=== PATIENT | female | born 1990 | race American Indian/Alaskan Native ===

== ENCOUNTER 2016-04-24 08:37 | Emergency (ER) | payer MEDICAID ==
[2016-04-24 08:53] VITALS: BP 104/65
[2016-04-24 10:25] LABS: Basophils % (Auto) 0.6 % (0.0-1.8); Hematocrit 41.6 % (30.3-42.9); Hemoglobin 13.4 gm/dl (10.1-14.3); Mean Corpuscular HGB Conc 32 % (30-34); Mean Corpuscular Hemoglobin 28 pg (28-32); Mean Corpuscular Volume 85 fl (79-97); Platelet Count 257 K/mm3 (140-440); Red Blood Count 4.87 M/mm3 (3.65-5.03); Red Cell Distribution Width 13.4 % (13.2-15.2); White Blood Count 6.6 K/mm3 (4.5-11.0)
[2016-04-24 10:43] LABS: Alanine Aminotransferase 8 units/L (7-56); Albumin 3.9 g/dL (3.9-5); Albumin/Globulin Ratio 1.4 %; Alkaline Phosphatase 70 units/L (35-129); Anion Gap 13 mmol/L; Bilirubin,Total 0.4 mg/dL (0.1-1.2); Blood Urea Nitrogen 6 mg/dL (7-17); Carbon Dioxide 28 mmol/L (22-30); Chloride 105.7 mmol/L (98-107); Glucose 87 mg/dL (65-100); Lipase 32 units/L (13-60); Potassium 4.2 mmol/L (3.6-5.0); Sodium 142 mmol/L (137-145); Total Protein 6.6 g/dL (6.3-8.2)
[2016-04-24 11:31] LABS: Bilirubin,Urine NEG (Negative); Blood,Urine NEG (Negative); Ketones,Urine NEG (Negative); Leukocyte Esterase,Urine NEG (Negative); Mucus,Urine FEW /HPF; Nitrite,Urine NEG (Negative); Protein,Urine <15 mg/dL mg/dL (Negative); Urobilinogen,Urine < 2.0 mg/dL (<2.0)
--- NOTE | 2016-04-25 14:57 | ED Elopement Review ---
ED Pt Elopement review - Results review Lab results: Laboratory Tests 04/24/16 04/24/16 04/24/16 10:11 10:11 10:11 WBC 6.6 RBC 4.87 Hgb 13.4 Hct 41.6 MCV 85 MCH 28 MCHC 32 RDW 13.4 Plt Count 257 Lymph % (Auto) 28.9 [place] % (Auto) 5.8 Eos % (Auto) 4.0 Baso % (Auto) 0.6 Lymph # 1.9 [place] # 0.4 Eos # 0.3 Baso # 0.0 Seg Neutrophils % 60.7 Seg Neutrophils # 4.0 Sodium 142 Potassium 4.2 Chloride 105.7 Carbon Dioxide 28 Anion Gap 13 BUN 6 L Creatinine 0.5 L Estimated GFR > 60 BUN/Creatinine Ratio 12.00 Glucose 87 Calcium 9.0 Total Bilirubin 0.4 AST 10 ALT 8 Alkaline Phosphatase 70 Total Protein 6.6 Albumin 3.9 Albumin/Globulin Ratio 1.4 Lipase 32 HCG, Qual Negative Urine Color Urine Turbidity Urine pH Ur Specific [place] Urine Protein Urine Glucose (UA) Urine Ketones Urine Blood Urine Nitrite Urine Bilirubin Urine Urobilinogen Ur Leukocyte Esterase Urine WBC (Auto) Urine RBC (Auto) U Epithel Cells (Auto) Urine Mucus 04/24/16 Unknown WBC RBC Hgb Hct MCV MCH MCHC RDW Plt Count Lymph % (Auto) [place] % (Auto) Eos % (Auto) Baso % (Auto) Lymph # [place] # Eos # Baso # Seg Neutrophils % Seg Neutrophils # Sodium Potassium Chloride Carbon Dioxide Anion Gap BUN Creatinine Estimated GFR BUN/Creatinine Ratio Glucose Calcium Total Bilirubin AST ALT Alkaline Phosphatase Total Protein Albumin Albumin/Globulin Ratio Lipase HCG, Qual Urine Color Yellow Urine Turbidity Clear Urine pH 7.0 Ur Specific [place] 1.018 Urine Protein <15 mg/dl Urine Glucose (UA) Neg Urine Ketones Neg Urine Blood Neg Urine Nitrite Neg Urine Bilirubin Neg Urine Urobilinogen < 2.0 Ur Leukocyte Esterase Neg Urine WBC (Auto) 1.0 Urine RBC (Auto) 2.0 U Epithel Cells (Auto) 4.0 Urine Mucus Few - Call Back decision Pt Call Back Decision: No action required
== END 2016-04-24 19:30 | disposition left against medical advice (07) ==
LOC: ED 08:37
DX: R10.10 Upper abdominal pain, unspecified (principal); R11.0 Nausea; R19.7 Diarrhea, unspecified; Z53.21 Procedure and treatment not carried out due to patient leaving prior to being seen by health care provider
CPT/HCPCS: 36415; 80053; 81001; 83690; 84703; 85025

== ENCOUNTER 2018-05-15 10:14 | Outpatient (CLI) | payer OTHER ==
[2018-05-15] MEDS ORDERED: LACTATED RINGERS 1,000 ML ONE (11:35)
[2018-05-15] MEDS ORDERED: LACTATED RINGERS 500 ML IV ONE (12:08)
[2018-05-15] MEDS ORDERED: ZOFRAN IV ONE (12:09)
[2018-05-15 12:31] LABS: Hematocrit 33.9 % (30.3-42.9); Hemoglobin 11.3 gm/dl (10.1-14.3); Mean Corpuscular HGB Conc 33 % (30-34); Mean Corpuscular Volume 84 fl (79-97); Platelet Count 267 K/mm3 (140-440); Red Blood Count 4.05 M/mm3 (3.65-5.03); Red Cell Distribution Width 13.4 % (13.2-15.2)
[2018-05-15 12:42] VITALS: BP 116/59
[2018-05-15 12:46] LABS: Alanine Aminotransferase 6 units/L (7-56); Albumin 3.5 g/dL (3.9-5); BUN/Creatinine Ratio 10; Blood Urea Nitrogen 3 mg/dL (7-17); Calcium 8.5 mg/dL (8.4-10.2); Hemolysis Index 24
[2018-05-15] MEDS ORDERED: TYLENOL PO ONE (13:00)
== END 2018-05-15 13:29 | disposition home or self-care (01) ==
LOC: TRG 10:14
PROVIDERS: ATTEND Obstetrics & Gynecology
DX: O47.02 False labor before 37 completed weeks of gestation, second trimester (principal); Z91.040 Latex allergy status; Z91.010 Allergy to peanuts; Z3A.24 24 weeks gestation of pregnancy
CPT/HCPCS: 36415; 59025; 80053; 85027; 96360; J2405; J7120

== ENCOUNTER 2018-07-19 22:04 | Outpatient (CLI) | payer OTHER ==
[2018-07-20] MEDS ORDERED: LACTATED RINGERS 1,000 ML IV ONE (00:26)
[2018-07-20 01:10] LABS: Hematocrit 27.9 % (30.3-42.9); Hemoglobin 9.2 gm/dl (10.1-14.3); Mean Corpuscular HGB Conc 33 % (30-34); Mean Corpuscular Volume 78 fl (79-97); Platelet Count 292 K/mm3 (140-440); Red Blood Count 3.59 M/mm3 (3.65-5.03); Red Cell Distribution Width 15.7 % (13.2-15.2)
[2018-07-20 01:21] LABS: Bilirubin,Urine NEG (Negative); Blood,Urine NEG (Negative); Color,Urine Yellow (Yellow); Mucus,Urine FEW /HPF; Protein,Urine <15 mg/dL mg/dL (Negative)
[2018-07-20 01:54] LABS: Alanine Aminotransferase 5 units/L (7-56)
[2018-07-20 02:29] LABS: Uric Acid 2.7 mg/dL (3.5-7.6)
[2018-07-20] MEDS ORDERED: TYLENOL PO ONE (02:48)
[2018-07-20] MEDS: BRETHINE SUB-Q SCH ×2 (02:54→03:46)
[2018-07-20 03:45] VITALS: BP 115/55
== END 2018-07-20 04:30 | disposition home or self-care (01) ==
LOC: TRG 22:04
PROVIDERS: ATTEND Obstetrics & Gynecology
DX: O26.893 Other specified pregnancy related conditions, third trimester (principal); R10.2 Pelvic and perineal pain; R51 Headache; R42 Dizziness and giddiness; H53.8 Other visual disturbances; R11.0 Nausea; Z3A.34 34 weeks gestation of pregnancy
CPT/HCPCS: 36415; 59025; 81001; 82565; 83615; 84450; 84460; 84550; 85027; 96360; 96372; J3105; J7120

== ENCOUNTER 2018-08-01 20:26 | Outpatient (CLI) | payer OTHER ==
[2018-08-01] MEDS ORDERED: LACTATED RINGERS 500 ML IV ONE (20:51)
[2018-08-01 21:15] LABS: Bilirubin,Urine NEG (Negative); Blood,Urine NEG (Negative); Color,Urine Yellow (Yellow); Mucus,Urine FEW /HPF; Protein,Urine <15 mg/dL mg/dL (Negative); Urobilinogen,Urine < 2.0 mg/dL (<2.0)
[2018-08-02 00:01] VITALS: BP 119/56
[2018-08-02] MEDS ORDERED: TYLENOL PO STA (00:02)
== END 2018-08-02 00:20 | disposition home or self-care (01) ==
LOC: TRG 20:26
PROVIDERS: ATTEND Obstetrics & Gynecology
DX: O62.9 Abnormality of forces of labor, unspecified (principal); O26.893 Other specified pregnancy related conditions, third trimester; R11.0 Nausea; O99.513 Diseases of the respiratory system complicating pregnancy, third trimester; J45.909 Unspecified asthma, uncomplicated; Z3A.36 36 weeks gestation of pregnancy
CPT/HCPCS: 59025; 81001; J7120; 96360; 96361

== ENCOUNTER 2018-08-13 21:35 | Inpatient (IN) | payer OTHER ==
[2018-08-13] MEDS ORDERED: LACTATED RINGERS 1,000 ML IV SCH (23:45)
[2018-08-14] MEDS ORDERED: PEPCID IV ONE ×2 (01:39→01:49)
[2018-08-14] MEDS ORDERED: REGLAN ONE (01:39)
[2018-08-14] MEDS ORDERED: BICITRA ONE (01:39)
[2018-08-14] MEDS ORDERED: ANCEF/STERILE WATER 2 GM/20 ML 2 GM/20 ML SYRINGE IV ONE (01:39)
[2018-08-14] MEDS ORDERED: PITOCin/NS 20 UNIT/1000ML DRIP 20,000 MILLIUNITS/1,000 ML BAG IV ONE (01:40)
[2018-08-14] MEDS ORDERED: REGLAN IV ONE (01:49)
[2018-08-14] MEDS ORDERED: BICITRA PO ONE (01:49)
[2018-08-14] MEDS ORDERED: ANCEF/STERILE WATER 2 GM/20 ML IV NR (02:00)
[2018-08-14] MEDS ORDERED: PITOCin/NS 20 UNIT/1000ML DRIP 20 UNITS/1,000 ML BAG IV SCH ×2 (02:00→08:00)
[2018-08-14] MEDS ORDERED: LACTATED RINGERS 1,000 ML IV SCH (02:00)
--- NOTE | 2018-08-14 02:05 | History and Physical Report ---
History of Present Illness Date of examination: 08/14/18 Date of admission: 08/14/18 01:40 Chief complaint: painful contractions History of present illness: Pt is a 28 year old -[place] female LUBA 09/01/18 at 37w3d who presents with regular painful contractions q 3 minutes. She denies leakage of fluid or vaginal bleeding. She has had care at [facility] since 10 wks complicated by previous x 3, obesity, UDS positive for THC, EIF on anatomy scan, SMA and Alpha thalassemia carrier status. She is GBS Negative. She has been counseled regarding tubal ligation and the subsequent risks of repeat delivery but she declines tubal ligation. Past History Past Medical History: asthma, other (anxiety ) Past Surgical History: section (x 3 (2012, 2013, 2015) ) Family/Genetic History: hypertension Social history: no significant social history - Obstetrical History Expected Date of Delivery: 09/01/18 Actual Gestation: 37 Week(s) 3 Day(s) : 7 Para: 3 Hx # Term Pregnancies: 3 Number of Pregnancies: 0 Spontaneous Abortions: 2 Induced : 1 Number of Living Children: 3 Medications and Allergies Allergies Allergy/AdvReac Type Severity Reaction Status Date / Time Latex, Natural Rubber AdvReac Severe Swelling Verified 05/15/18 12:07 peanut AdvReac Severe Swelling Verified 05/15/18 12:08 Home Medications Medication Instructions Recorded Confirmed Last Taken Type Oseltamivir [Tamiflu] 75 mg PO BID #10 cap 03/22/18 Unknown Rx Active Meds: Active Medications Lactated Ringer's (Lactated Ringers) 1,000 mls @ 999 mls/hr IV DIRECT DONTRELL Oxytocin/Sodium Chloride (Pitocin/Ns 20 Unit/1000ml Drip) 20 units in 1,000 mls @ 0 mls/hr IV TITR DONTRELL Lactated Ringer's (Lactated Ringers) 1,000 mls @ 2,250 mls/hr IV PREOP DONTRELL Stop: 08/15/18 02:27 Review of Systems All systems: negative - Vital Signs Vital signs: Vital Signs Pulse Pulse Ox 78 100 08/13/18 22:36 08/13/18 22:36 Temp Pulse Resp BP Pulse Ox 99.1 F 102 H 20 90 08/13/18 22:59 08/13/18 23:34 08/13/18 22:59 08/13/18 23:34 - Physical Exam Breasts: Positive: deferred Cardiovascular: Regular rate Lungs: Positive: Clear to auscultation Abdomen: Positive: soft (obese, gravid ) Uterus: Positive: enlarged (gravid) Extremities: Positive: edema (trace) - Obstetrical Uterine Contraction Pattern: Regular Uterine Tone Measurement Phase: Resting Uterine Contraction Intensity: Strong/Firm Results Result Diagrams: 08/14/18 01:28 All other labs normal. Assessment and Plan A: IUP at 37w3d Previous x 3 Latent Labor Obesity Asthma Anxiety GBS Negative P: Proceed with repeat section and other indicated procedures.
[2018-08-14] MEDS ORDERED: PHENERGAN PO PRN (02:13)
[2018-08-14] MEDS ORDERED: ZOFRAN IV PRN ×2 (02:13→08:00)
[2018-08-14] MEDS ORDERED: PHENERGAN PR PRN (02:13)
[2018-08-14] MEDS ORDERED: DILAUDID IV PRN (02:13)
[2018-08-14] MEDS ORDERED: NARCAN 0.4 MG/1 ML IV PRN ×2 (02:13→08:00)
--- NOTE | 2018-08-14 02:19 | Anesthesia Day of Surgery ---
Anesthesia Day of Surgery - Day of Surgery Patient Examined: Yes Patient H&P Reviewed: Yes Patient is NPO: Yes Beta Blockers: No Cardiac Clearance: No Pulmonary Clearance: No Jeffry's Test: N/A
--- NOTE | 2018-08-14 02:19 | Anesthesia Consultation ---
Anesthesia Consult and Med Hx Date of service: 08/14/18 - Airway Anesthetic Teeth Evaluation: Chipped ROM Head & Neck: Adequate Mallampati Class: Class III Intubation Access Assessment: Probably Good - Pulmonary Exam CTA: Yes - Cardiac Exam Cardiac Exam: RRR - Pre-Operative Health Status ASA Pre-Surgery Classification: ASA3 Proposed Anesthetic Plan: Epidural, Spinal - Pre-Anesthesia Comment Pre-Anesthesia Comments: history of Anxiety - Pulmonary Hx Smoking: No Hx Asthma: Yes (last attach last week, Albuterol inhalers prn) Hx Respiratory Symptoms: Yes SOB: Yes COPD: No Home Oxygen Therapy: No Hx Pneumonia: No Hx Sleep Apnea: No - Cardiovascular System Hx Hypertension: No Hx Coronary Artery Disease: No Hx Heart Attack/AMI: No Hx Angina: No Hx Percutaneous Transluminal Coronary Angioplasty (PTCA): No Hx Cardia Arrhythmia: No Hx Pacemaker: No Hx Internal Defibrillator: No Hx Heart Murmur: No Hx Peripheral Vascular Disease: No - Central Nervous System Hx Neuromuscular Disorder: No Hx Seizures: No CVA: No Hx Back Pain: No Hx Psychiatric Problems: No - Gastrointestinal Hx Ulcer: No Hx Gastroesophageal Reflux Disease: Yes - Endocrine Hx Renal Disease: No Hx End Stage Renal Disease: No Hx Cirrhosis: No Hx Liver Disease: No Hx Insulin Dependent Diabetes: No Hx Non-Insulin Dependent Diabetes: No Hx Thyroid Disease: No Hx Hypothyroidism: No Hx Hyperthyroidism: No - Hematic Hx Anemia: Yes Hx Sickle Cell Disease: No - Other Systems Hx Alcohol Use: No Hx Substance Use: No Hx Cancer: No Hx Obesity: Yes (BMI 38)
--- NOTE | 2018-08-14 02:20 | Post Anesthesia Evaluation ---
- Post Anesthesia Evaluation Patient Participated: Yes Airway Patent: Yes Stable Respiratory Function: Yes Nausea/Vomiting: No Temp > 96.8F: Yes Pain Manageable: Yes Adequeate Hydration: Yes Anesthesia Complications: Yes Block Receding Appropriately: Yes Patient on Ventilator: No
[2018-08-14] MEDS ORDERED: SUBLIMAZE ONE ×2 (02:31→04:25)
[2018-08-14 02:41] LABS: Basophils % (Auto) 0.1 % (0.0-1.8); Eosinophils # (Auto) 0.1 K/mm3 (0.0-0.4); Eosinophils % (Auto) 1.5 % (0.0-4.3); Hematocrit 28.5 % (30.3-42.9); Hemoglobin 8.8 gm/dl (10.1-14.3); Lymphocytes # (Auto) 1.6 K/mm3 (1.2-5.4); Lymphocytes % (Auto) 18.3 % (13.4-35.0); Mean Corpuscular HGB Conc 31 % (30-34); Mean Corpuscular Volume 74 fl (79-97); Monocytes # (Auto) 0.7 K/mm3 (0.0-0.8); Monocytes % (Auto) 8.3 % (0.0-7.3); Platelet Count 312 K/mm3 (140-440); Red Blood Count 3.84 M/mm3 (3.65-5.03); Red Cell Distribution Width 17.3 % (13.2-15.2)
[2018-08-14] MEDS ORDERED: MARCAINE 0.5% INFILTRATI ONE (02:53)
[2018-08-14] MEDS ORDERED: SODIUM CHLORIDE FLUSH SYRINGE 10 ML IV NR (03:00)
[2018-08-14] MEDS ORDERED: NACL 0.9% IR ONE (03:20)
[2018-08-14] MEDS ORDERED: WATER FOR IRRIG STERILE IR ONE (03:20)
[2018-08-14] MEDS ORDERED: VERSED ONE ×2 (04:25)
--- NOTE | 2018-08-14 05:00 | Procedure Note ---
OB Delivery Note - Delivery Date of Delivery: 08/14/18 Surgeon: DONNELL FINE Estimated blood loss: 1000cc - Section Preop diagnosis: repeat , other (latent labor ) Postop diagnosis: same section procedure: section, repeat low transverse, other (lysis of adhesions ) Disposition: PACU Complications: none Narrative: Please see operative report. - Infant A at 1 minute: 8 at 5 minutes: 9 Gender: Female (2513g (5lb 9oz) @ 0402 am)
--- NOTE | 2018-08-14 05:04 | Operative Report ---
Operative Report Operative Report: Date of procedure: August 14, 2018 Preoperative diagnosis: 1) IUP at 37w3d 2) Latent labor 3) Previous x 3 4) Obesity Postoperative diagnosis: Same 5) Intrabdominal adhesions Procedure: 1) Repeat low transverse section 2) Lysis of Adhesions Surgeon: Evy Almaguer M.D. Anesthesia: Regional Findings: 1) Viable female , Apgars 8 and 9, weight 2513g, (5 lb 9 oz) in cephalic presentation 2) Normal-appearing uterus ovaries and tubes Estimated blood loss: 1000 mL IV fluids: 1700 mL Urine output: 100 mL, clear at the end of the procedure Drains: [place] to gravity Specimens: Placenta to pathology Complications: None. Counts correct x 3 Disposition: Stable to PACU Indication for procedure: Patient is a 28-year-old 033 at 37 weeks 3 days with a history of 3 prior sections who presents in latent labor. The decision was made to proceed with delivery. Operation in detail: After the risks, benefits, alternatives and complications were explained to the patient she gave informed consent for the procedure. She was subsequently taken to the operating room where regional anesthesia was noted to be adequate. She was subsequently placed in the dorsal supine position with leftward tilt and prepped and draped in a normal sterile fashion. heart tones were noted to be in the 150s prior to incision. A timeout was performed. A Pfannenstiel skin incision was made with the knife and carried down to the layer of the fascia with the Bovie. The fascia was incised in the midline and the fascial incision was extended bilaterally with the Bovie. Attention was then turned to the superior aspect of the incision which was grasped with two Kochers, tented up, and dissected off the rectus muscles. Attention was then turned to the inferior aspect of the incision which was grasped with two Kochers, tented up and dissected off the rectus muscles. The rectus muscles were then in the midline and partially transected for adequate visualization. The peritoneum was then entered bluntly. The peritoneal incision was extended with good visualization of the bladder. The peritoneal incision was then stretched. The bladder blade was placed. The vesicouterine peritoneum was grasped with smooth pickups and incised with Metzenbaum scissors. Metzenbaum scissors were used to extend the incision bilaterally. The bladder flap was then created digitally and the bladder blade was replaced. A transverse incision was made in the lower uterine segment with a knife and extended bilaterally with the bandage scissors. The head was delivered without difficulty followed by shoulders and body. was bulb suctioned at delivery. The cord was clamped and cut and the was handed to NICU staff in attendance. Cord blood was collected. The placenta was then delivered manually. The uterus was then exteriorized and cleared of all clots and debris. The hysterotomy was then reapproximated with 0 Vicryl in a running locked fashion. A second layer of the same suture was used in imbricating fashion. Additional [id number] 0 Vicryl were used to obtain hemostasis. The hysterotomy was inspected and hemostasis was noted. The uterus was returned to the peritoneal cavity and the gutters were irrigated and cleared of all clots and debris. The hysterotomy was again inspected and noted to be hemostatic. Surgicel was placed over the hysterotomy. Interceed was placed over the anterior aspect of the uterus. The peritoneum was reapproximated with 2-0 Vicryl in a running fashion incorporating the rectus muscles. The fascia was reapproximated with 0 Vicryl in a running fashion. The subcutaneous tissue was reapproximated with 3-0 Vicryl in a running fashion The skin was reapproximated with 4-0 Vicryl in a subcuticular fashion. The incision was then covered with steri strips and a pressure dressing. The procedure was then ended. The patient tolerated the procedure well and was taken to the PACU in stable condition. All instrument, lap, and needle counts were correct 3.
[2018-08-14] MEDS: BENADRYL IV PRN (05:30)
[2018-08-14] MEDS ORDERED: IBUPROFEN PO PRN (08:00)
[2018-08-14] MEDS ORDERED: D5LR 1,000 ML IV SCH (08:00)
[2018-08-14] MEDS ORDERED: TUCKS PAD TP PRN (08:00)
[2018-08-14] MEDS ORDERED: SODIUM CHLORIDE FLUSH SYRINGE 10 ML IV PRN (08:00)
[2018-08-14] MEDS ORDERED: LANSINOH TP PRN (08:00)
[2018-08-14] MEDS ORDERED: TYLENOL PO PRN (08:00)
[2018-08-14] MEDS: TORADOL IV PRN ×3 (08:11→23:34)
--- NOTE | 2018-08-14 08:56 | Post Anesthesia Evaluation ---
- Post Anesthesia Evaluation Patient Participated: Yes Airway Patent: Yes Stable Respiratory Function: Yes Nausea/Vomiting: No Temp > 96.8F: Yes Pain Manageable: Yes Adequeate Hydration: Yes Anesthesia Complications: No Block Receding Appropriately: Yes Patient on Ventilator: No
[2018-08-14] MEDS ORDERED: DILAUDID ONE (09:44)
[2018-08-14] MEDS: DILAUDID IV PRN (09:45)
[2018-08-14] MEDS: PERCOCET 5/325 PO PRN ×3 (14:35→23:49)
[2018-08-14] MEDS: MYLICON PO PRN ×2 (14:36→19:59)
[2018-08-14] MEDS: ANCEF/NS 1 GM/50 ML 1 GM/50 ML BAG IV SCH ×2 (14:37→22:33)
[2018-08-14 18:41] LABS: Hematocrit 24.9 % (30.3-42.9); Hemoglobin 7.8 gm/dl (10.1-14.3)
[2018-08-15] MEDS: DILAUDID IV PRN (02:46)
[2018-08-15] MEDS: PERCOCET 5/325 PO PRN ×4 (04:58→20:48)
[2018-08-15] MEDS: BENADRYL IV PRN (05:08)
[2018-08-15] MEDS ORDERED: BOOSTRIX IM ONE (06:00)
[2018-08-15] MEDS ORDERED: CITRATE OF MAGNESIA PO NR (08:28)
--- NOTE | 2018-08-15 08:28 | Progress Note ---
Assessment and Plan A/P POD 1 s/p repeat csec pain not controlled-anesthesia consult routine care ambulation Subjective - Subjective Date of service: 08/15/18 Principal diagnosis: s/p repeat csec Patient reports: appetite normal, voiding normally, flatus, ambulating normally, no pain well controlled : doing well Objective - Vital Signs Latest vital signs: Vital Signs Temp Pulse Resp BP BP Pulse Ox 08/14/18 23:08 99.6 F 112 H 20 136/70 100 08/14/18 16:35 97.1 F L 90 20 111/83 08/14/18 09:00 96.9 F L Intake and Output 08/14/18 08/15/18 08/15/18 23:59 07:59 15:59 Intake Total 240 Output Total 1000 800 Balance -760 -800 Intake: Oral 240 Output: Urine 1000 800 Indwelling Catheter 800 Void 200 800 Other: Total, Intake Amount 240 Total, Output Amount 200 800 # Voids Void 1 1 - Exam Breasts: Present: normal Cardiovascular: Present: Regular rate, Normal S1 Lungs: Present: Clear to auscultation, Normal air movement Abdomen: Present: normal appearance, soft, normal bowel sounds. Absent: distention, tenderness, guarding Uterus: Present: normal, firm, fundal height below umbilicus. Absent: bogginess, tenderness Extremities: Present: normal Deep Tendon Reflex Grade: Normal +2 Incision: Present: normal, dry, intact - Labs Labs: Abnormal lab results 08/14/18 Range/Units 18:07 Hgb 7.8 L (10.1-14.3) gm/dl Hct 24.9 L (30.3-42.9) %
[2018-08-15] MEDS ORDERED: NARCAN 0.4 MG/1 ML IV PRN (09:37)
[2018-08-15] MEDS ORDERED: ZOFRAN IV PRN ×2 (09:39→16:45)
[2018-08-15] MEDS ORDERED: BENADRYL IV PRN (09:39)
[2018-08-15] MEDS ORDERED: MORPHINE PCA 30MG/30ML IV SCH (10:00)
[2018-08-15] MEDS ORDERED: M-M-R II VACCINE SUB-Q ONE (11:00)
[2018-08-15] MEDS: SENOKOT S PO SCH ×2 (11:08→23:38)
[2018-08-15] MEDS: FEOSOL PO SCH (11:08)
[2018-08-15] MEDS: TORADOL IV PRN (14:58)
[2018-08-15] MEDS ORDERED: MARCAINE-EPI 0.25%-1:200,000 INFILTRATI ONE (16:04)
[2018-08-15] MEDS ORDERED: DECADRON ONE (16:05)
[2018-08-15] MEDS ORDERED: PHENERGAN PR PRN (16:45)
[2018-08-15] MEDS ORDERED: PHENERGAN PO PRN (16:45)
[2018-08-15] MEDS: MYLICON PO PRN ×2 (16:50→23:38)
--- NOTE | 2018-08-15 16:53 | Progress Note ---
Subjective Date of service: 08/15/18 Principal diagnosis: s/p repeat csec Interval history: Patient evaluated in post- unit for complaint of poorly controlled pain s/p repeat on 08/14/18. Patient reports that pain is sharp and located across the entire abdomen, occasionally radiating to the back. There is some pain at the incision site with coughing or sneezing but is distinct from the overall abdominal pain. She reports a feeling of fullness in the belly but denies swelling. She has not been ambulating much and has not had a bowel movement since surgery. She was started on morphine [employer]IATE several hours ago and reports increased drowsiness but no relief. She believes percocet was more helpful. On exam, she is in no acute distress. Abdomen is soft but very tender to palpat ion. Bowel sounds are normal. Surgical dressing appears clean and dry. Most recent vital signs within normal limits. Labs are notable for 1 point drop in Hb compared to preop value. A/P: Currently, there is low suspicion for acute intra-abdominal process given history and exam findings however patient was counseled on red flag symptoms and instructed to alert nursing staff if these develop. Constipation may be contributing to pain severity. TAP block for additional analgesia was discussed with the patient however this may be less beneficial since the pain described is not incisional. The following plan was discussed with the patient and family and they are in agreement: 1. 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 resume percocet 5/325 2 tabs q4hr prn 3. dilaudid 0.5mg IV q6hr prn for breakthrough only 4. start scheduled toradol 30mg IV q6hr (previously ordered prn) 5. continue stool softener and anti-gas pain medications 6. encourage ambulation A member of the anesthesia team will re-evaluate tomorrow. Please call with additional questions or concerns. Objective - Constitutional Vitals: Vital Signs - 12hr 08/15/18 08/15/18 07:32 12:15 Temperature 98.5 F 99.6 F Pulse Rate 74 Respiratory 18 Rate Blood Pressure 106/49 O2 Sat by Pulse 100 Oximetry - Labs CBC & Chem 7: 08/14/18 18:07 Labs: Abnormal lab results 08/14/18 Range/Units 18:07 Hgb 7.8 L (10.1-14.3) gm/dl Hct 24.9 L (30.3-42.9) %
[2018-08-15] MEDS: MILK OF MAGNESIA PO SCH ×2 (16:54→23:37)
[2018-08-15] MEDS ORDERED: DILAUDID IV PRN (17:22)
[2018-08-15] MEDS: TORADOL IV SCH (20:30)
[2018-08-16] MEDS: PERCOCET 5/325 PO PRN ×5 (00:56→20:55)
[2018-08-16] MEDS: TORADOL IV SCH ×4 (01:53→20:47)
[2018-08-16] MEDS: MILK OF MAGNESIA PO SCH ×3 (05:05→17:13)
[2018-08-16] MEDS: FEOSOL PO SCH ×4 (10:00→20:52)
[2018-08-16] MEDS: SENOKOT S PO SCH ×2 (10:08→21:01)
--- NOTE | 2018-08-16 11:07 | Progress Note ---
Assessment and Plan A/P POD 2 s/p repeat csec consult with anesthesia for pain routine care d/c home tomorrow Subjective - Subjective Date of service: 08/16/18 Principal diagnosis: s/p repeat csec Patient reports: appetite normal, voiding normally, pain well controlled, flatus, ambulating normally Isom: doing well Objective - Vital Signs Latest vital signs: Vital Signs Temp Pulse Resp BP Pulse Ox 08/16/18 07:37 97.8 F 79 20 103/51 100 08/16/18 01:00 97.7 F 98 H 20 115/69 100 08/15/18 16:52 18 08/15/18 12:15 99.6 F Intake and Output 08/15/18 08/16/18 08/16/18 23:59 07:59 15:59 Intake Total 480 Balance 480 Intake: Intake, Free Water 480 Other: # Voids Void 2 - Exam Breasts: Present: normal Cardiovascular: Present: Regular rate, Normal S1 Lungs: Present: Clear to auscultation, Normal air movement Abdomen: Present: normal appearance, soft, normal bowel sounds. Absent: distention, tenderness, guarding Uterus: Present: normal, firm, fundal height below umbilicus. Absent: bogginess, tenderness Extremities: Present: normal Deep Tendon Reflex Grade: Normal +2 Incision: Present: normal
[2018-08-17] MEDS: MILK OF MAGNESIA PO SCH ×2 (00:53→04:56)
[2018-08-17] MEDS: PERCOCET 5/325 PO PRN ×4 (00:54→18:52)
[2018-08-17] MEDS: TORADOL IV SCH ×3 (06:29→15:23)
[2018-08-17] MEDS ORDERED: KENALOG TP SCH (10:00)
--- NOTE | 2018-08-17 10:20 | Progress Note ---
Assessment and Plan A/P POD 3 s/p repeat csec pain in leg -doppler today routine care if doppler neg d/c home with f/u in 2 weeks Subjective - Subjective Date of service: 08/17/18 Principal diagnosis: s/p repeat csec Patient reports: appetite normal, voiding normally, pain well controlled, flatus, ambulating normally : doing well Objective - Vital Signs Latest vital signs: Vital Signs Temp Pulse Resp BP BP Pulse Ox 08/17/18 00:30 98.6 F 79 18 101/67 08/16/18 17:34 98.3 F 93 H 20 119/60 99 Intake and Output 08/16/18 08/17/18 08/17/18 23:59 07:59 15:59 Intake Total 600 Balance 600 Intake: Intake, Free Water 600 - Exam Breasts: Present: normal Cardiovascular: Present: Regular rate, Normal S1 Lungs: Present: Clear to auscultation, Normal air movement Abdomen: Present: normal appearance, soft, normal bowel sounds. Absent: distention, tenderness, guarding Uterus: Present: normal, firm, fundal height below umbilicus. Absent: bogginess, tenderness Extremities: Present: normal Deep Tendon Reflex Grade: Normal +2 Incision: Present: normal, dry, intact
[2018-08-17] MEDS: SENOKOT S PO SCH (10:52)
[2018-08-17] MEDS: FEOSOL PO SCH ×3 (10:52→15:24)
--- NOTE | 2018-08-17 15:05 | Vascular Lab Report ---
PROCEDURE: VL VENOUS DUPLEX LE RT TECHNIQUE: Duplex Doppler sonography of the right . Canela scale imaging with and without compression, spectral waveform analysis with and without augmentation, and color flow Doppler were employed. HISTORY: PAIN RIGHT LOWER LEG. COMPARISONS: None FINDINGS: Real-time ultrasound of the right leg was performed using grayscale and color Doppler image s. These images demonstrate no evidence of deep venous thrombus in the right common femoral vein, superf icial femoral vein, popliteal vein or posterior tibial vein. IMPRESSION: No DVT in right leg This document is electronically signed by George Do MD., Aug 17 2018 03:02:51 PM ET
[2018-08-17 18:56] VITALS: BP 113/63
== END 2018-08-17 19:30 | disposition home or self-care (01) | DRG 765 ==
LOC: TRG 21:35 → APU 08-14 01:40 → OB 08-14 07:20
PROVIDERS: ADMIT Obstetrics & Gynecology; ATTEND Obstetrics & Gynecology
PROC: 10D00Z1 Extraction of Products of Conception, Low, Open Approach (ICD-10-PCS; principal; 2018-08-14)
PROC: 3E0234Z Introduction of Serum, Toxoid and Vaccine into Muscle, Percutaneous Approach (ICD-10-PCS; 2018-08-15)
DX: O34.211 Maternal care for low transverse scar from previous cesarean delivery (principal); D62 Acute posthemorrhagic anemia; O99.62 Diseases of the digestive system complicating childbirth; O99.02 Anemia complicating childbirth; O99.344 Other mental disorders complicating childbirth; F41.9 Anxiety disorder, unspecified; J45.909 Unspecified asthma, uncomplicated; O99.52 Diseases of the respiratory system complicating childbirth; K21.9 Gastro-esophageal reflux disease without esophagitis; E66.9 Obesity, unspecified; O99.214 Obesity complicating childbirth; Z3A.37 37 weeks gestation of pregnancy; Z37.0 Single live birth; Z82.49 Family history of ischemic heart disease and other diseases of the circulatory system; Z91.040 Latex allergy status; Z91.010 Allergy to peanuts; Z79.899 Other long term (current) drug therapy; Z23 Encounter for immunization
CPT/HCPCS: 36415; 85014; 85018; 85025; 86592; 86850; 86870; 86900; 86901; 88307; 90471; 90715; G0378; C1765; J0690; J1100; J1170; J1200; J1885; J2250; J2270; J2405; J2590; J2765; J3010; J7120; J7121